=== PATIENT | male | born 1950 | race Caucasian/White ===

== ENCOUNTER 2018-07-21 20:48 | Emergency (ER) | payer MEDICARE, OTHER ==
[~2018-07-21] VITALS: Ht 172.7 cm; Wt 90.7 kg
[~2018-07-21 20:48] MED LIST: ASPIRIN EC81 M1 PO; CIPROFLOXIN HC2.5 M1 OPHTHALMIC; FLONASE16 GM; JALYN 0.5-0.41 EACH PO; LIPITOR40 MG PO; PERCOCET 5-3251 EACH PO; VERAPAMIL HCL80 MG PO; ZEGERID 40 MG1 EACH PO; ZYRTEC 10 MG TA10 M1 PO
[2018-07-21] MEDS ORDERED: FLOMAX0.4 MG PO (21:00)
[2018-07-21] MEDS ORDERED: PRILOSEC 20 MG20 MG PO (21:00)
[2018-07-21] MEDS ORDERED: DITROPAN XL10 M1 PO (21:01)
[2018-07-21] MEDS ORDERED: NORCO 5-325 TA1 EACH PO (21:01)
[2018-07-21 21:25] LABS: URINE BILIRUBIN NEGATIVE (Negative); URINE BLOOD NEGATIVE (Negative); URINE CLARITY CLEAR; URINE COLOR YELLOW; URINE GLUCOSE-RANDOM NEGATIVE (Negative); URINE KETONES NEGATIVE (Negative); URINE LEUKOCYTES-REFLEX NEGATIVE (Negative); URINE NITRITE-REFLEX NEGATIVE (Negative); URINE PROTEIN NEGATIVE (Negative); URINE SPECIFIC GRAVITY >= 1.030 (1.005-1.030); URINE UROBILINOGEN 0.2 E.U./dl (0.2-1.0)
[2018-07-21 21:45] VITALS: BP 156/82
[2018-07-27] MEDS ORDERED: PROAIR RESPICL90 MCG INH (10:02)
[2018-07-27] MEDS ORDERED: ZYRTEC10 M4 PO (10:03)
[2018-07-27] MEDS ORDERED: MEDROL DOSPAK21 TA1 PO (10:04)
== END 2018-07-21 21:45 | disposition home or self-care (01) ==
LOC: M.ERS 20:48
PROVIDERS: Physician Assistant
DX: M54.41 Lumbago with sciatica, right side (principal); K21.9 Gastro-esophageal reflux disease without esophagitis; E78.00 Pure hypercholesterolemia, unspecified; N40.0 Benign prostatic hyperplasia without lower urinary tract symptoms; G89.29 Other chronic pain; Z88.2 Allergy status to sulfonamides

== ENCOUNTER → 2018-07-27 | Outpatient (CLI) | payer MEDICARE, OTHER ==
[~2018-07-27] MED LIST changes: +DITROPAN XL10 M1 PO; +FLOMAX0.4 MG PO; +MEDROL DOSPAK21 TA1 PO; +NORCO 5-325 TA1 EACH PO; +PRILOSEC 20 MG20 MG PO; +PROAIR RESPICL90 MCG INH; +ZYRTEC10 M4 PO
== END ==
LOC: M.PC 09:00
DX: M47.26 Other spondylosis with radiculopathy, lumbar region (principal); M51.16 Intervertebral disc disorders with radiculopathy, lumbar region; M48.061 Spinal stenosis, lumbar region without neurogenic claudication; K21.9 Gastro-esophageal reflux disease without esophagitis; E78.00 Pure hypercholesterolemia, unspecified; G89.29 Other chronic pain; Z88.2 Allergy status to sulfonamides

== ENCOUNTER → 2018-08-05 | Outpatient (CLI) | payer MEDICARE, OTHER | END | disposition home or self-care (01) | LOC: M.PC 05:16 | DX: M47.816 Spondylosis without myelopathy or radiculopathy, lumbar region (principal); G89.29 Other chronic pain; M54.5 Low back pain; E78.00 Pure hypercholesterolemia, unspecified; N40.0 Benign prostatic hyperplasia without lower urinary tract symptoms; K21.9 Gastro-esophageal reflux disease without esophagitis; Z98.890 Other specified postprocedural states; Z79.82 Long term (current) use of aspirin; Z79.899 Other long term (current) drug therapy; Z88.2 Allergy status to sulfonamides ==

== ENCOUNTER → 2018-08-17 | Outpatient (CLI) | payer MEDICARE, OTHER | LOC: M.CT 14:52 | DX: M47.26 Other spondylosis with radiculopathy, lumbar region (principal); M48.061 Spinal stenosis, lumbar region without neurogenic claudication ==

== ENCOUNTER → 2018-08-19 | Outpatient (CLI) | payer MEDICARE, OTHER | END | disposition home or self-care (01) | LOC: M.PC 05:24 | DX: M51.36 Other intervertebral disc degeneration, lumbar region (principal); M47.816 Spondylosis without myelopathy or radiculopathy, lumbar region; M48.061 Spinal stenosis, lumbar region without neurogenic claudication; G89.29 Other chronic pain; Z98.890 Other specified postprocedural states; Z79.899 Other long term (current) drug therapy; Z88.2 Allergy status to sulfonamides; Z79.82 Long term (current) use of aspirin ==

== ENCOUNTER → 2019-02-10 | Outpatient (CLI) | payer MEDICARE, OTHER | LOC: M.PC 05:25 | DX: M47.26 Other spondylosis with radiculopathy, lumbar region (principal); M51.16 Intervertebral disc disorders with radiculopathy, lumbar region; M48.061 Spinal stenosis, lumbar region without neurogenic claudication; M43.16 Spondylolisthesis, lumbar region ==

== ENCOUNTER 2019-02-21 06:15 | Emergency (ER) | payer MEDICARE, OTHER ==
[~2019-02-21] VITALS: Ht 172.7 cm; Wt 95.3 kg
[2019-02-21] MEDS ORDERED: BENZONATATE200 MG PO (06:26)
[2019-02-21 07:28] LABS: INFLUENZA A ANTIGEN Negative (Negative)
[2019-02-21] MEDS ORDERED: ZPAK PO (07:41)
[2019-02-21] MEDS ORDERED: PREDNISONE 20 M20 M1 PO (07:41)
[2019-02-21] MEDS ORDERED: PROMETH-CODEIN 65 ML PO (07:56)
[2019-02-21 08:32] VITALS: BP 109/55
== END 2019-02-21 08:35 | disposition home or self-care (01) ==
LOC: M.ERS 06:15
PROVIDERS: Family Medicine
DX: J10.1 Influenza due to other identified influenza virus with other respiratory manifestations (principal); K21.9 Gastro-esophageal reflux disease without esophagitis; E78.00 Pure hypercholesterolemia, unspecified; G89.29 Other chronic pain; N40.0 Benign prostatic hyperplasia without lower urinary tract symptoms; Z88.2 Allergy status to sulfonamides

== ENCOUNTER → 2019-03-23 | Outpatient (CLI) | payer MEDICARE, OTHER ==
[~2019-03-23] MED LIST changes: +BENZONATATE200 MG PO; +PREDNISONE 20 M20 M1 PO; +PROMETH-CODEIN 65 ML PO; +ZPAK PO
== END ==
LOC: M.CT 03-17 12:25
DX: M50.123 Cervical disc disorder at C6-C7 level with radiculopathy (principal); M12.88 Other specific arthropathies, not elsewhere classified, other specified site; M48.02 Spinal stenosis, cervical region; M25.78 Osteophyte, vertebrae

== ENCOUNTER → 2019-04-14 | Outpatient (CLI) | payer MEDICARE, OTHER | END | disposition home or self-care (01) | LOC: M.PC 04-07 10:30 | DX: M54.2 Cervicalgia (principal); M54.12 Radiculopathy, cervical region; Z98.890 Other specified postprocedural states; Z79.899 Other long term (current) drug therapy; Z79.82 Long term (current) use of aspirin; Z88.2 Allergy status to sulfonamides ==

== ENCOUNTER 2019-11-21 20:36 | Emergency (ER) | payer MEDICARE, OTHER ==
[~2019-11-21] VITALS: Ht 170.2 cm; Wt 86.2 kg
[2019-11-21] MEDS ORDERED: HEARTBURN PREVE20 MG PO (20:55)
[2019-11-21] MEDS ORDERED: ATROVENT HFA14 GM INH (20:55)
[2019-11-21] MEDS ORDERED: PROTONIX40 M4 PO (20:55)
[2019-11-21 21:53] LABS: HEMATOCRIT 39.8 % (42.0-52.0); HEMOGLOBIN 13.6 gm/dL (14.0-18.0); MCH 31.1 pg (26.0-34.0); MCHC 34.3 g/dL (28.0-37.0); MCV 90.7 fL (80.0-100.0); MPV 9.1 fl. (7.2-11.1); NUCLEATED RBCS 0 /100WBC; PLATELET COUNT* 189 thou/uL (150-400); RBC 4.38 mil/uL (4.50-6.00); RDW-CV 14.3 % (10.5-14.5); WBC 6.9 thou/uL (4.0-11.0)
[2019-11-21 21:58] LABS: CREATININE 1.8 mg/dL (0.6-1.3)
[2019-11-21 22:00] LABS: PROTIME 10.7 Seconds (9.20-11.50)
[2019-11-21 22:09] LABS: ALBUMIN 3.3 g/dL (3.4-5.0); CALCIUM 8.8 mg/dL (8.5-10.1); TOTAL BILIRUBIN 0.3 mg/dL (<0.1-1.0); TOTAL PROTEIN 6.6 g/dL (6.4-8.2)
[2019-11-21 22:17] LABS: ABSOLUTE LYMPHOCYTES 2.8 thou/uL (0.8-5.3); ABSOLUTE MONOCYTES 0.6 thou/uL (0.0-1.2); ABSOLUTE NEUTROPHILS 2.5 thou/uL (1.6-8.1)
[2019-11-21 22:18] LABS: ATYPICAL LYMPHS 14 %; PLATELET ESTIMATE ADEQUATE
[2019-11-21] MEDS ORDERED: PREVACID30 MG PO (22:47)
[2019-11-21] MEDS ORDERED: CARAFATE 1 GM TA1 GM PO (22:47)
[2019-11-21] MEDS ORDERED: IPRAT-ALBUT 0.5-3 ML INH (23:15)
[2019-11-21] MEDS ORDERED: MEDROLDOSEPACK PO (23:15)
[2019-11-21] MEDS ORDERED: NEBULIZER MISCELL (23:15)
[2019-11-21 23:48] VITALS: BP 122/59
--- NOTE | 2019-11-22 14:23 | EKG ---
[place] [address] ELECTROCARDIOGRAM REPORT Name: GIGI PRAJAPATI JR Room: [facility]#: [id number] Admission: 11/21/19 Attend Phys: Discharge: 11/21/19 Date of : 48 Date of Service: 11/21/192150 Report #: [id number] THIS REPORT FOR: //name// [facility] ED Test Date: 2019-11-21 Test Time: 21:51:25 Pat Name: GIGI PRAJAPATI Department: Room: Gender: [employer] Manager: : 1950 Requested By: Brissa De La Fuente Order Number: [id number] MD: Regan Velarde Measurements Intervals [place] Rate: 56 P: 54 CT: 137 QRS: 3 QRSD: 85 T: 40 QT: 420 QTc: 406 Interpretive Statements Sinus rhythm Borderline ST elevation, lateral leads Baseline wander in lead(s) II,III,aVF Compared to ECG 02/16/2017 11:18:40 Sinus bradycardia no longer present ST (T wave) deviation still present Electronically Signed On 11-22-2019 14:22:59 CDT by Regan Velarde [email or web address] <ELECTRONICALLY SIGNED> By: Regan Velarde MD, FACC 11/22/19 1422 50 50 Regan Velarde MD, FAC /EPI
== END 2019-11-21 23:48 | disposition home or self-care (01) ==
LOC: M.ERS 20:36
PROVIDERS: Personal Emergency Response Attendant
DX: J98.01 Acute bronchospasm (principal); E78.00 Pure hypercholesterolemia, unspecified; K21.9 Gastro-esophageal reflux disease without esophagitis; G89.29 Other chronic pain; Z20.828 Contact with and (suspected) exposure to other viral communicable diseases; Z88.2 Allergy status to sulfonamides

== ENCOUNTER → 2019-12-02 | Outpatient (CLI) | payer MEDICARE, OTHER ==
[~2019-12-02] MED LIST changes: +ATROVENT HFA14 GM INH; +CARAFATE 1 GM TA1 GM PO; +HEARTBURN PREVE20 MG PO; +IPRAT-ALBUT 0.5-3 ML INH; +MEDROLDOSEPACK PO; +NEBULIZER MISCELL; +PREVACID30 MG PO; +PROTONIX40 M4 PO
[2019-12-02 15:52] LABS: ABSOLUTE EOSINOPHILS 0.4 thou/uL (0.0-0.7); ABSOLUTE LYMPHOCYTES 2.1 thou/uL (0.8-5.3); ABSOLUTE MONOCYTES 1.1 thou/uL (0.0-1.2); ABSOLUTE NEUTROPHILS 4.1 thou/uL (1.6-8.1); BASOPHILS 0.6 %; EOSINOPHILS 5.8 %; HEMATOCRIT 41.2 % (42.0-52.0); LYMPHOCYTES 26.8 %; MCH 30.9 pg (26.0-34.0); MCHC 33.9 g/dL (28.0-37.0); MCV 91.2 fL (80.0-100.0); MONOCYTES 14.2 %; MPV 8.6 fl. (7.2-11.1); NUCLEATED RBCS 0 /100WBC; PLATELET COUNT* 197 thou/uL (150-400); POLYS 52.6 %; RBC 4.52 mil/uL (4.50-6.00); RDW-CV 14.6 % (10.5-14.5); WBC 7.8 thou/uL (4.0-11.0)
[2019-12-02 16:08] LABS: ALBUMIN 3.2 g/dL (3.4-5.0); CALCIUM 8.8 mg/dL (8.5-10.1); CREATININE 1.3 mg/dL (0.6-1.3); MAGNESIUM 1.8 mg/dL (1.8-2.4); POTASSIUM 3.8 mmol/L (3.5-5.1); TOTAL BILIRUBIN 0.3 mg/dL (<0.1-1.0); TOTAL PROTEIN 6.6 g/dL (6.4-8.2)
== END ==
LOC: M.LAB 15:34
PROVIDERS: ATTEND Internal Medicine Critical Care Medicine
DX: J98.01 Acute bronchospasm (principal); R91.8 Other nonspecific abnormal finding of lung field; N28.9 Disorder of kidney and ureter, unspecified

== ENCOUNTER → 2019-12-13 | Outpatient (CLI) | payer MEDICARE, OTHER | LOC: M.PC 09:23 | PROVIDERS: ATTEND Physical Medicine & Rehabilitation | DX: M47.22 Other spondylosis with radiculopathy, cervical region (principal); M50.10 Cervical disc disorder with radiculopathy, unspecified cervical region ==

== ENCOUNTER → 2019-12-20 | Outpatient (CLI) | payer MEDICARE, OTHER | END | disposition home or self-care (01) | LOC: M.PC 09:11 | PROVIDERS: ATTEND Physical Medicine & Rehabilitation | DX: M54.12 Radiculopathy, cervical region (principal); Z79.899 Other long term (current) drug therapy ==

== ENCOUNTER → 2020-01-17 | Outpatient (CLI) | payer MEDICARE, OTHER | LOC: M.CT 10:45 | PROVIDERS: ATTEND Internal Medicine | DX: J98.01 Acute bronchospasm (principal); I25.10 Atherosclerotic heart disease of native coronary artery without angina pectoris; M25.78 Osteophyte, vertebrae; M48.04 Spinal stenosis, thoracic region ==

== ENCOUNTER → 2020-05-01 | Outpatient (CLI) | payer MEDICARE, OTHER ==
--- NOTE | 2020-05-02 00:03 | PF ---
[address] [address] PULMONARY FUNCTION REPORT Name: GIGI PRAJAPATI JR Room: [facility]#: [id number] Admission: 05/01/20 Attend Phys: Daniel Schulz MD Discharge: Date of : 48 Report #: [id number] THIS REPORT FOR: cc: Rosa Ahuja MD, Lin W. MD ~ Daniel Schulz MD DATE OF SERVICE: 05/01/2020 The FEV1/FVC ratio is normal at 77% with an FVC normal at 100% and FEV1 normal at 105%. The GJL42-21 is also normal at 130%. The patient's total lung capacity and residual volume are not available. The DLCO as adjusted for hemoglobin is 82%. The flow volume loop is concave upwards. The patient's FEV1 is noted to be 3.02 liters. IMPRESSION: The spirometry is normal except the flow volume loop is concave upwards. This does raise the possibility of minimal underlying obstruction. Lung volumes are not available. The DLCO is normal at 82%. <ELECTRONICALLY SIGNED> By: Daniel Schulz MD 05/02/20 0003 49 [id number] Schulz MD /nt
== END ==
LOC: M.PUL 09:43
PROVIDERS: ATTEND Internal Medicine Critical Care Medicine
DX: J98.01 Acute bronchospasm (principal)

== ENCOUNTER → 2020-06-21 | Outpatient (CLI) | payer MEDICARE, OTHER ==
[~2020-06-21] MED LIST changes: +PEPCID20 MG PO; +PROTONIX40 M2 PO; +SINGULAIR 10 MG10 M1 PO
== END ==
LOC: M.PC 09:37
PROVIDERS: ATTEND Physical Medicine & Rehabilitation
DX: M50.10 Cervical disc disorder with radiculopathy, unspecified cervical region (principal); M85.88 Other specified disorders of bone density and structure, other site; M51.16 Intervertebral disc disorders with radiculopathy, lumbar region; M47.26 Other spondylosis with radiculopathy, lumbar region; M48.061 Spinal stenosis, lumbar region without neurogenic claudication; M43.16 Spondylolisthesis, lumbar region; I65.23 Occlusion and stenosis of bilateral carotid arteries; Z68.28 Body mass index [BMI] 28.0-28.9, adult; Z98.890 Other specified postprocedural states